=== PATIENT | female | born 1960 | race Caucasian/White ===

== ENCOUNTER 2023-06-10 17:38 | Emergency (ER) | payer SELFPAY ==
[~2023-06-10] VITALS: Ht 154.9 cm; Wt 60.8 kg
[2023-06-10 18:13] VITALS: BP 141/100; PULSE 104; RESP 18; TEMP 98.3; O2SAT 97
[2023-06-10] MEDS ORDERED: LIDOCAINE MPF 1% 5 ML ONE ×2 (21:24)
[2023-06-10] MEDS ORDERED: cefTRIAXone 250 MG VIAL ONE ×2 (21:24)
[2023-06-10] MEDS: cefTRIAXone 250 MG in LIDOCAINE MPF 1% 0.9 ML IM ONE (21:39)
== END 2023-06-10 21:39 | disposition home or self-care (01) ==
LOC: MED 17:38
DX: Z20.811 Contact with and (suspected) exposure to meningococcus (principal); Z20.2 Contact with and (suspected) exposure to infections with a predominantly sexual mode of transmission
CPT/HCPCS: 96372; 99283; J0696; J2001